=== PATIENT | female | born 2005 | race Hispanic/Latino ===

== ENCOUNTER 2023-09-11 22:22 | Emergency (ER) | payer OTHER ==
[~2023-09-11] VITALS: Ht 162.6 cm; Wt 59.1 kg
[2023-09-11] MEDS ORDERED: LORazepam 2 MG/ML 1ML VIAL As Ordered ONE (22:26)
[2023-09-11] MEDS ORDERED: LORazepam 2 MG/ML 1ML VIAL IV STA (22:29)
[2023-09-11] MEDS ORDERED: NS 1,000 ML IV ONE (22:30)
[2023-09-11 22:33] VITALS: O2SAT 100
[2023-09-11] MEDS ORDERED: ONDANSETRON 4MG 2ML VIAL IV ONE (22:40)
[2023-09-11 22:43] VITALS: TEMP 98.9
[2023-09-11 22:50] LABS: VENOUS HCO3 22.1 MMOL/L (23.0-27.0); VENOUS O2 SATURATION 98.6 % (60.0-80.0); VENOUS PARTIAL PRESSURE CO2 39.7 mmHg (38.0-50.0); VENOUS PARTIAL PRESSURE O2 156.7 mmHg (30.0-50.0); VENOUS PH 7.363 UNITS (7.330-7.430); VENOUS TOTAL CO2 23.3 MMOL/L (24.0-28.0)
[2023-09-11 22:58] LABS: BASO % 0.3 % (0.0-1.0); EOS # 0.1 10^3/uL (0.0-0.5); EOS % 0.7 % (0.0-3.0); HEMATOCRIT 36.4 % (36.0-47.0); HEMOGLOBIN 12.8 g/dl (12.0-15.5); LYMPH # 2.3 10^3/uL (1.5-5.0); LYMPH % 22.3 % (24.0-44.0); MEAN CORPUSCULAR HEMOGLOBIN 31.1 pg (27.0-33.0); MEAN CORPUSCULAR HGB CONC 35.2 g/dl (32.0-36.5); MEAN CORPUSCULAR VOLUME 88.6 fl (80.0-96.0); MONO # 0.6 10^3/uL (0.0-0.8); MONO % 5.9 % (2.0-8.0); NEUTROPHILS # 7.1 10^3/uL (1.5-8.5); NEUTROPHILS % 70.5 % (36.0-66.0); PLATELET COUNT, AUTOMATED 397 10^3/uL (150-450); RED BLOOD COUNT 4.11 10^6/uL (4.00-5.40); WHITE BLOOD COUNT 10.1 10^3/uL (4.0-10.0)
[2023-09-11 23:20] LABS: CPK CREATINE PHOSPHOKINASE 53 U/L (34-145); SALICYLATE LEVEL < 3.0 MG/DL (<30)
[2023-09-11 23:21] LABS: ALBUMIN 3.9 G/DL (3.2-5.2); ALKALINE PHOSPHATASE 86 U/L (46-116); ALT/SGPT 21 U/L (7.0-40); AST/SGOT 12 U/L (<34); BILIRUBIN,DIRECT 0.2 MG/DL (<0.4); BILIRUBIN,TOTAL 0.6 MG/DL (0.3-1.2); BLOOD UREA NITROGEN 11 MG/DL (9-23); CARBON DIOXIDE LEVEL 19 MMOL/L (20-31); CHLORIDE LEVEL 105 MMOL/L (98-107); GLUCOSE, FASTING 87 MG/DL (60-100); SODIUM LEVEL 143 MMOL/L (136-145); TOTAL PROTEIN 7.7 G/DL (5.7-8.2)
[2023-09-11 23:23] LABS: THYROID STIMULATING HORMONE 2.037 uIU/ML (0.48-4.17)
[2023-09-11 23:31] LABS: RSV AMPLIFICATION NEGATIVE (NEGATIVE)
[2023-09-11 23:40] LABS: HCG, SERUM QUALITATIVE NEGATIVE (NEGATIVE)
[2023-09-12 04:59] LABS: AMPHETAMINES LEVEL URINE NEGATIVE (NEGATIVE); BARBITURATES URINE NEGATIVE (NEGATIVE); BENZODIAZEPINES URINE NEGATIVE (NEGATIVE)
[2023-09-12 05:00] VITALS: BP 106/57; O2SAT 100
[2023-09-12 05:00] LABS: CANNABINOIDS URINE NEGATIVE (NEGATIVE); COCAINE METABOLITE URINE NEGATIVE (NEGATIVE); METHADONE URINE NEGATIVE (NEGATIVE); OPIATES URINE NEGATIVE (NEGATIVE); PHENCYCLIDINE URINE NEGATIVE (NEGATIVE)
== END 2023-09-12 05:21 | disposition home or self-care (01) ==
LOC: M ED 22:22 → EDBD 22:22 → M ED 09-12 05:21
DX: F10.920 Alcohol use, unspecified with intoxication, uncomplicated (principal); U07.1 COVID-19; R06.4 Hyperventilation
CPT/HCPCS: 80048; 80076; 80143; 80307; 82077; 82550; 82803; 84443; 84703; 85025; 87631; 93005; 93041; 94760; 99285; J2060; J2405